=== PATIENT | female | born 1995 | race African-American/Black ===

== ENCOUNTER 2019-11-18 11:25 | Emergency (ER) | payer OTHER ==
[~2019-11-18] VITALS: Ht 167.6 cm; Wt 88.5 kg
[2019-11-18 12:54] LABS: URINE BILIRUBIN NEGATIVE (Negative); URINE BLOOD NEGATIVE (Negative); URINE CLARITY CLEAR; URINE COLOR YELLOW; URINE GLUCOSE-RANDOM* NEGATIVE (Negative); URINE KETONES NEGATIVE (Negative); URINE LEUKOCYTES-REFLEX NEGATIVE (Negative); URINE NITRITE-REFLEX NEGATIVE (Negative); URINE PROTEIN (DIPSTICK) NEGATIVE (Negative); URINE UROBILINOGEN 0.2 E.U./dl (0.2-1.0)
[2019-11-18] MEDS ORDERED: NAPROSYN500 MG PO (13:07)
[2019-11-18] MEDS ORDERED: NORFLEX100 MG PO (13:07)
[2019-11-18 13:18] VITALS: BP 129/75
== END 2019-11-18 13:25 | disposition home or self-care (01) ==
LOC: ER 11:25
PROVIDERS: Physician Assistant
DX: S39.012A Strain of muscle, fascia and tendon of lower back, initial encounter (principal); M54.6 Pain in thoracic spine; X58.XXXA Exposure to other specified factors, initial encounter; Y93.89 Activity, other specified; Y92.89 Other specified places as the place of occurrence of the external cause; Y99.8 Other external cause status

== ENCOUNTER 2020-02-25 20:49 | Emergency (ER) | payer OTHER ==
[~2020-02-25] VITALS: Ht 167.6 cm; Wt 76.2 kg
[~2020-02-25 20:49] MED LIST: NAPROSYN500 MG PO; NORFLEX100 MG PO
[2020-02-25 23:12] VITALS: BP 132/89
== END 2020-02-25 23:13 | disposition still patient (30) ==
LOC: ER 20:49
DX: R06.00 Dyspnea, unspecified (principal); Z20.828 Contact with and (suspected) exposure to other viral communicable diseases